=== PATIENT | male | born 1955 | race Caucasian/White ===

== ENCOUNTER 2022-06-17 07:42 | Day surgery (SDC) | payer MEDICARE, BC ==
[~2022-06-17 07:42] MED LIST: XYLOCAINE 1% HCL 20 ML MDV ONE
[2022-06-17] MEDS ORDERED: Lactated Ringers 1,000 ML IV SCH (08:30)
[2022-06-17 11:13] VITALS: BP 121/77; PULSE 80; O2SAT 94
--- NOTE | 2022-06-17 11:39 | OP ---
SURGERY DATE/TIME: 06/17/2022 0941 PREOPERATIVE DIAGNOSIS: Undesired Permacath. POSTOPERATIVE DIAGNOSIS: Undesired Permacath. PROCEDURE: Complete Permacath removal, i.e. removal of a moth exterminator catheter with a tunnel and cuff. SURGEON: Tello Miller M.D. SPECIAL ORDER JEWELER: Lee Loyd M.D., [facility]. ANESTHESIA: IV sedation. COMPLICATIONS: None. CONDITION: Stable. INDICATION: A patient completed use of this and requiring its removal. DESCRIPTION OF PROCEDURE: He is taken to surgery. Routine prep and drape. 1% lidocaine. The entire catheter and the cuff were removed. Closed with 3-0 Vicryl, sterile dressing. The patient tolerated the procedure satisfactorily.
== END 2022-06-17 11:15 | disposition home or self-care (01) ==
LOC: SDC 07:42
PROVIDERS: ATTEND Surgery
DX: Z45.2 Encounter for adjustment and management of vascular access device (principal)